=== PATIENT | female | born 1935 | race Caucasian/White ===

== ENCOUNTER 2022-08-02 17:16 | Inpatient (IN) | payer MEDICARE, OTHER ==
[~2022-08-02] VITALS: Ht 162.6 cm; Wt 64.4 kg
[2022-08-02 18:49] LABS: BASOPHILS % (AUTO) 0.5 % (0.0-2.0); EOSINOPHILS % (AUTO) 2.5 % (0.0-6.0); HEMATOCRIT 46 % (33-45); LYMPHOCYTES # (AUTO) 1.3 K/uL (0.8-4.8); LYMPHOCYTES % (AUTO) 14.3 % (20.0-44.0); MEAN CORPUSCULAR HGB CONC 32 g/dl (31.0-36.0); MEAN CORPUSCULAR VOLUME 83 fL (82-100); MONOCYTES % (AUTO) 11.5 % (2.0-12.0); NEUTROPHILS # (AUTO) 6.3 K/uL (1.8-8.9); NEUTROPHILS % (AUTO) 71.2 % (43.0-81.0); PLATELET COUNT (AUTO) 213 K/uL (150-450); RED BLOOD CELL COUNT(AUTO) 5.58 MIL/uL (4.0-5.2); WHITE BLOOD COUNT (AUTO) 8.8 K/uL (4.3-11.0)
--- NOTE | 2022-08-02 19:05 | NUR ---
[id number] BRITTANY GOODWIN [facility], FOR PSYCH EVAL. PT A/OX2/3. NO AGGITATION NOTED AT THIS TIME. TOLERATING R/A WELL WITH NO RESP DITRESS. SAFETY MEASURES IN PLACE.
[2022-08-02 19:29] LABS: ALANINE AMINOTRANSFERASE 17 U/L (12-78); ALBUMIN 3.4 g/dL (3.4-5.0); ALCOHOL, BLOOD < 3 mg/dL (0-0); ALKALINE PHOSPHATASE 103 U/L (46-116); ASPARTATE AMINOTRANSFERASE 13 U/L (15-37); BILIRUBIN,DIRECT 0.2 mg/dL (0.0-0.2); BILIRUBIN,TOTAL 0.8 mg/dL (0.2-1.0); CALCIUM, SERUM 9.6 mg/dL (8.5-10.1); CARBON DIOXIDE 29 mmol/L (21-32); CHLORIDE 104 mmol/L (98-107); CREATININE 2.5 mg/dL (0.6-1.3); GLUCOSE 152 mg/dL (74-106); POTASSIUM 4.2 mmol/L (3.5-5.1); SODIUM SERUM 140 mmol/L (136-145); TOTAL PROTEIN, SERUM 7.4 g/dL (6.4-8.2); UREA NITROGEN, BLOOD 27 mg/dL (7-18)
[2022-08-02 19:30] LABS: ACETAMINOPHEN 0 ug/ml (10-30)
--- NOTE | 2022-08-02 19:31 | NUR ---
COVID ANTIGEN SWAB COLLECTED AND SENT TO LAB
--- NOTE | 2022-08-02 19:37 | NUR ---
URINE COLLECTED AND SENT TO LAB
[2022-08-02 20:25] LABS: BILIRUBIN,URINE NEGATIVE (NEGATIVE); COLOR,URINE YELLOW (YELLOW); LEUKOCYTE ESTERASE ,URINE TRACE (NEGATIVE); NITRITE, URINE NEGATIVE (NEGATIVE); PH,URINE 5.5 (5.0-8.0); PROTEIN,URINE NEGATIVE (NEGATIVE); UGLUCOSE NEGATIVE (NEGATIVE); UROBILINOGEN,URINE 0.2 EU/dL (0.2)
[2022-08-02 20:29] LABS: BACTERIA,URINE Few /HPF (None Seen); SQUAMOUS EPITHELIAL CELL,UR Few /HPF (None Seen)
[2022-08-02] MEDS ORDERED: PIPERACILLIN /TAZOBACTAM 3.375 G in IV D5W 50 ML IV ONE (21:30)
[2022-08-02] MEDS ORDERED: IV NS 0.9% 1,000 ML IV ONE (21:30)
[2022-08-02] MEDS ORDERED: VANCOMYCIN 1 GM in IV D5W 250 ML IV ONE (21:30)
[2022-08-02] MEDS ORDERED: VANCOMYCIN 1 GM VIAL ONE (21:36)
[2022-08-02] MEDS ORDERED: PIPERACILLIN /TAZOBACTAM 3.375 G VIAL IV ONE (21:36)
[2022-08-02] MEDS ORDERED: Z GUARD REMEDY 4 OZ OINT TP PRN (23:00)
[2022-08-02] MEDS ORDERED: ONDANSETRON HCL/PF 4 MG/2 ML VIAL IVP PRN (23:00)
[2022-08-02] MEDS ORDERED: DEXTROSE 50%-WATER 50 ML DISP.SYRIN IV PRN (23:00)
[2022-08-02] MEDS ORDERED: ACETAMINOPHEN 325 MG TABLET PO PRN (23:00)
[2022-08-02] MEDS ORDERED: OLAN5TAB3 PO (23:05)
[2022-08-02] MEDS ORDERED: LEVO150T PO (23:07)
[2022-08-02] MEDS ORDERED: CARV25TA2 PO (23:14)
[2022-08-02] MEDS ORDERED: CLON0.1T PO (23:14)
[2022-08-02] MEDS ORDERED: OXYB5TAB29 PO (23:14)
[2022-08-02] MEDS ORDERED: AMIO200T5 PO (23:14)
[2022-08-02] MEDS ORDERED: SPIR25TA6 PO (23:14)
[2022-08-02] MEDS ORDERED: FURO20TA4 PO (23:14)
[2022-08-02] MEDS ORDERED: LINA5TAB PO (23:14)
[2022-08-02] MEDS ORDERED: LOSA25TA27 PO (23:14)
[2022-08-02] MEDS ORDERED: GLIP5TAB13 PO (23:14)
[2022-08-02] MEDS ORDERED: DOCU-141 PO (23:14)
[2022-08-02] MEDS ORDERED: ATOR80TA PO (23:14)
[2022-08-02] MEDS ORDERED: BUPR-96 PO (23:14)
--- NOTE | 2022-08-02 23:28 | NUR ---
US TECH AT PT'S BEDSIDE
[2022-08-03] MEDS ORDERED: CEFTRIAXONE 1GM BAG (ER ONLY) 50 ML IV ONE (00:42)
[2022-08-03] MEDS ORDERED: OLANZAPINE 5 MG TABLET ONE (00:42)
[2022-08-03] MEDS: OLANZAPINE 5 MG TABLET PO SCH ×2 (00:46→21:57)
[2022-08-03] MEDS: CEFTRIAXONE 1 G in IV D5W 50 ML IV SCH (02:23)
--- NOTE | 2022-08-03 05:55 | NUR ---
LIME SPREADER AT PT'S BEDSIDE
[2022-08-03 06:38] LABS: BASOPHILS # (AUTO) 0.1 K/uL (0.0-0.2); BASOPHILS % (AUTO) 0.8 % (0.0-2.0); EOSINOPHILS % (AUTO) 2.5 % (0.0-6.0); HEMATOCRIT 45 % (33-45); HEMOGLOBIN 14.5 g/dL (11.5-14.8); LYMPHOCYTES # (AUTO) 1.3 K/uL (0.8-4.8); LYMPHOCYTES % (AUTO) 19.5 % (20.0-44.0); MEAN CORPUSCULAR HGB CONC 32 g/dl (31.0-36.0); MEAN CORPUSCULAR VOLUME 84 fL (82-100); MONOCYTES # (AUTO) 0.7 K/uL (0.1-1.30); MONOCYTES % (AUTO) 10.5 % (2.0-12.0); NEUTROPHILS # (AUTO) 4.6 K/uL (1.8-8.9); NEUTROPHILS % (AUTO) 66.7 % (43.0-81.0); PLATELET COUNT (AUTO) 175 K/uL (150-450); RED BLOOD CELL COUNT(AUTO) 5.37 MIL/uL (4.0-5.2); WHITE BLOOD COUNT (AUTO) 6.9 K/uL (4.3-11.0)
[2022-08-03 06:58] LABS: FERRITIN 69 ng/mL (8-388); THYROID STIMULATING HORMONE 18.951 uIU/mL (0.358-3.74)
[2022-08-03 07:04] LABS: CALCIUM, SERUM 8.9 mg/dL (8.5-10.1); CARBON DIOXIDE 27 mmol/L (21-32); CHLORIDE 108 mmol/L (98-107); CREATININE 2.2 mg/dL (0.6-1.3); GLUCOSE 134 mg/dL (74-106); IRON, SERUM 39 ug/dl (50-175); MAGNESIUM 2.4 mg/dL (1.8-2.4); PHOSPHORUS 3.4 mg/dL (2.5-4.9); POTASSIUM 3.8 mmol/L (3.5-5.1); SODIUM SERUM 143 mmol/L (136-145); TOTAL IRON BINDING CAPACITY 267 ug/dl (250-450); UREA NITROGEN, BLOOD 28 mg/dL (7-18)
[2022-08-03] MEDS: PANTOPRAZOLE 40 MG TABLET.DR PO SCH (07:30)
[2022-08-03] MEDS ORDERED: LEVOTHYROXINE SODIUM 125 MCG TABLET PO SCH (07:30)
--- NOTE | 2022-08-03 07:42 | NUR ---
BED 309-1
[2022-08-03] MEDS ORDERED: PANTOPRAZOLE 40 MG TABLET.DR PO ONE (07:45)
[2022-08-03] MEDS: BLOOD SUGAR DIAGNOSTIC 1 EACH STRIP IN SCH ×4 (07:50→23:12)
--- NOTE | 2022-08-03 08:03 | NUR ---
HARDY SIMENTAL ([facility]) [phone]
--- NOTE | 2022-08-03 08:12 | NUR ---
CALL FROM HER SON FROM [place],UPDATER ON PATIENT'S CONDITION AND INFORMED HIM THAT PATIENT GOT AN INPATIENT BED AND WILL BE MOVED SOON.
--- NOTE | 2022-08-03 08:24 | NUR ---
REPORT GIVEN TO ANGELITO CHAPA FOR LUZMARIA
[2022-08-03] MEDS: AMIODARONE HCL 200 MG TABLET PO SCH (09:00)
[2022-08-03] MEDS: CARVEDILOL 12.5 MG TABLET PO SCH ×2 (09:00→21:00)
[2022-08-03] MEDS: DOCUSATE SODIUM 100 MG CAPSULE PO SCH ×2 (09:57→17:31)
[2022-08-03] MEDS: BUPROPION XL 150 MG TAB.ER.24 PO SCH (09:57)
[2022-08-03] MEDS: LEVOTHYROXINE SODIUM 125 MCG TABLET PO SCH (10:01)
[2022-08-03] MEDS: HEPARIN SODIUM, PORCINE 5000 UNITS/1 ML VIAL SQ SCH ×2 (10:02→21:56)
--- NOTE | 2022-08-03 11:00 | NUR ---
MS RN RECEIVED A NEW ADMISSION FROM ER, 87 YEAR OLD FEMALE, ORIENTED X1-2,CONFUSE AT TIMES, CAME IN W/ DX OF UTI, LUNGS ARE CLEAR,ABDOMEN SOFT,POSITIVE BOWEL SOUNDS, DENIES PAIN AT THIS TIME, REPOSITIONED FOR COMFORT, ALL NEEDS ATTENDED, WILL MONITOR PATIENT.
--- NOTE | 2022-08-03 11:50 | NUR ---
ms rn son called updated w/ plan of care.
[2022-08-03] MEDS: IV 1/2NS 1000 ML 1,000 ML IV PRN (13:32)
--- NOTE | 2022-08-03 16:00 | NUR ---
ms rn sleeping no distress noted.
[2022-08-03] MEDS: ATORVASTATIN 40 MG TABLET PO SCH (17:31)
--- NOTE | 2022-08-03 18:36 | NUR ---
ms rn on bed, eating dinner,all needs attended.
--- NOTE | 2022-08-03 19:30 | NUR ---
MS RN OPENING NOTE RECEIVED PT ASLEEP IN BED. PATIENT A/O X2, WITH CONFUSION. PT STABLE ON ROOM AIR WITH EQUAL AND UNLABORED BREATHING, NO S/S OF RESPIRATORY DISTRESS. PATIENT WITH IV ACCESS ON RIGHT HAND G20 WITH 1/2 NS RUNNING AT 75ML/HR INFUSING WELL. SAFETY PRECAUTIONS IN PLACE. BED IN LOWEST LOCKED POSITION, HOB ELEVATED, SIDE RAILS UP X3, AND CALL LIGHT AND TABLE WITHIN REACH. WILL CONTINUE TO MONITOR PT.
[2022-08-03 20:00] VITALS: BP 118/59
--- NOTE | 2022-08-03 21:00 | NUR ---
MS RN NOTE PT REFUSED COREG, PT'S BP: 118/68, P: 53. PT IS VERY COMBATIVE, SHE IS HITTING AND SCRATCHING NURSES.
[2022-08-03] MEDS: OXYBUTYNIN CHLORIDE ER 5 MG TAB PO SCH (21:57)
[2022-08-03] MEDS: INSULIN REGULAR, HUMAN 100 UNIT/ML 3 ML VIAL SQ PRN (23:16)
[2022-08-04] MEDS: CEFTRIAXONE 1 G in IV D5W 50 ML IV SCH (01:11)
[2022-08-04 07:00] VITALS: BP 128/83
--- NOTE | 2022-08-04 07:10 | NUR ---
ms rn received on bed, awake,alert,oriented x3-4, not in any form of distress, respirations even and unlabored,no sob noted, lungs are cdiminished ,abdomen sodft,positive bowel sounds, denies pain at this time, came in w/ uti ,denies pain at this time.
[2022-08-04] MEDS: BLOOD SUGAR DIAGNOSTIC 1 EACH STRIP IN SCH ×4 (07:28→22:14)
--- NOTE | 2022-08-04 07:35 | NUR ---
MS RN CLOSING NOTE LEFT PT ASLEEP IN BED. PATIENT A/O X2, WITH CONFUSION. PT IS COMBATIVE. PT STABLE ON ROOM AIR WITH EQUAL AND UNLABORED BREATHING, NO S/S OF RESPIRATORY DISTRESS. PATIENT WITH IV ACCESS ON RIGHT HAND G20 WITH 1/2 NS RUNNING AT 75ML/HR INFUSING WELL. SAFETY PRECAUTIONS IN PLACE. BED IN LOWEST LOCKED POSITION, HOB ELEVATED, SIDE RAILS UP X3, AND CALL LIGHT AND TABLE WITHIN REACH. ENDORSED PT TO AM SHIFT RN FOR LUZMARIA.
[2022-08-04] MEDS: DOCUSATE SODIUM 100 MG CAPSULE PO SCH ×2 (08:24→18:38)
[2022-08-04] MEDS: AMIODARONE HCL 200 MG TABLET PO SCH (08:25)
[2022-08-04] MEDS: BUPROPION XL 150 MG TAB.ER.24 PO SCH (08:25)
[2022-08-04] MEDS: LEVOTHYROXINE SODIUM 125 MCG TABLET PO SCH (08:25)
[2022-08-04] MEDS: PANTOPRAZOLE 40 MG TABLET.DR PO SCH (08:25)
[2022-08-04] MEDS: CARVEDILOL 12.5 MG TABLET PO SCH ×2 (08:26→21:00)
[2022-08-04 08:30] VITALS: BP 118/70
[2022-08-04] MEDS: HEPARIN SODIUM, PORCINE 5000 UNITS/1 ML VIAL SQ SCH ×2 (08:31→22:15)
--- NOTE | 2022-08-04 09:00 | NUR ---
ms wise breakfast served,due meds given, tolerated well.
--- NOTE | 2022-08-04 11:00 | NUR ---
ms rn was seen by pt, did some exercise,all needs attended.
--- NOTE | 2022-08-04 12:00 | NUR ---
ms rn refused blood draw 2 times, patient went back to sleep.
[2022-08-04 16:00] VITALS: BP 146/75
--- NOTE | 2022-08-04 16:25 | NUR ---
ms rn on bed, sleeping,no distress noted.
[2022-08-04] MEDS: ATORVASTATIN 40 MG TABLET PO SCH (18:38)
--- NOTE | 2022-08-04 19:35 | NUR ---
MS RN Opening Note Received patient in bed; awake, alert and oriented x 2; with episodes of confusion. Breathing even and nonlabored. On room air; tolerating well. Not in any form of respiratory distress. No s/s of any pain or discomfort noted at this time. With IV access on right hand 20g; intact and patent running with 1/2 NS 1L regulated @ 75 ml/hr; flushes well. Able to make needs known. Safety precautions implemented: call light and table within reach, side rails up x 3, bed in lowest locked position. Will continue plan of care.
[2022-08-04 20:00] VITALS: BP 149/68
[2022-08-04] MEDS: IV 1/2NS 1000 ML 1,000 ML IV PRN (20:26)
[2022-08-04] MEDS: OXYBUTYNIN CHLORIDE ER 5 MG TAB PO SCH (21:48)
[2022-08-04] MEDS: OLANZAPINE 5 MG TABLET PO SCH (21:48)
--- NOTE | 2022-08-04 22:05 | NUR ---
RN Note Blood sugar checked - 100 mg/dL. No insulin coverage given per sliding scale. Will continue to monitor for s/s of hypo/hyperglycemia.
[2022-08-05] MEDS: CEFTRIAXONE 1 G in IV D5W 50 ML IV SCH (01:35)
[2022-08-05] MEDS: BLOOD SUGAR DIAGNOSTIC 1 EACH STRIP IN SCH ×4 (06:38→21:23)
[2022-08-05] MEDS: INSULIN REGULAR, HUMAN 100 UNIT/ML 3 ML VIAL SQ PRN ×2 (06:39→12:22)
--- NOTE | 2022-08-05 06:45 | NUR ---
MS RN Closing Note Patient in bed; awake, a/o x 1-2; confused. Stable on room air. Breathing equal and unlabored. In no acute distress. Denies any pain or discomfort at this time. With IV access on right hand 20g; intact and patent running with 1/2 NS 1L regulated @ 75 ml/hr; flushes well. All needs attended to. Safety precautions maintained: call light and table within reach, side rails up x 3, bed in lowest locked position. Endorsed to morning shift for lucy.
[2022-08-05 07:42] LABS: ALANINE AMINOTRANSFERASE 12 U/L (12-78); ALBUMIN 2.7 g/dL (3.4-5.0); ALKALINE PHOSPHATASE 88 U/L (46-116); ASPARTATE AMINOTRANSFERASE 14 U/L (15-37); BILIRUBIN,TOTAL 0.6 mg/dL (0.2-1.0); CALCIUM, SERUM 9.1 mg/dL (8.5-10.1); CARBON DIOXIDE 25 mmol/L (21-32); CHLORIDE 107 mmol/L (98-107); CREATININE 1.6 mg/dL (0.6-1.3); GLUCOSE 108 mg/dL (74-106); MAGNESIUM 2.3 mg/dL (1.8-2.4); PHOSPHORUS 3.2 mg/dL (2.5-4.9); SODIUM SERUM 139 mmol/L (136-145); TOTAL PROTEIN, SERUM 6.5 g/dL (6.4-8.2); UREA NITROGEN, BLOOD 21 mg/dL (7-18)
[2022-08-05 08:00] VITALS: BP 158/76
--- NOTE | 2022-08-05 08:15 | NUR ---
RN OPENING NOTE PATIENT RECEIVED IN BED, AO X 1-2, ABLE TO RESPONDS ALL STIMULI. IN NO ACUTE DISTRESS NOTED. RESPIRATORY EVEN AND UNLABORED IN ROOM AIR. SKIN IS WARM TO TOUCH, KEEP CLEAN/DRY. KEPT ELEVATED HOB FOR ENSURE AIRWAY AND ASPIRATION PRECAUTION, ALSO LOWEST POSITION OF THE BED, S/R UP X 3, BED ALARM IS ON AT ALL THE TIMES. ALL SAFETY PRECAUTION APPLIED. CALL LIGHT WITHIN REACH, WILL CONTINUE TO MONITOR.
[2022-08-05] MEDS: DOCUSATE SODIUM 100 MG CAPSULE PO SCH ×2 (08:28→17:05)
[2022-08-05] MEDS: BUPROPION XL 150 MG TAB.ER.24 PO SCH (08:29)
[2022-08-05] MEDS: PANTOPRAZOLE 40 MG TABLET.DR PO SCH (08:29)
[2022-08-05] MEDS: AMIODARONE HCL 200 MG TABLET PO SCH (08:32)
[2022-08-05] MEDS: LEVOTHYROXINE SODIUM 125 MCG TABLET PO SCH (08:33)
[2022-08-05] MEDS: CARVEDILOL 12.5 MG TABLET PO SCH ×2 (08:33→21:00)
[2022-08-05] MEDS: HEPARIN SODIUM, PORCINE 5000 UNITS/1 ML VIAL SQ SCH ×2 (08:34→21:21)
[2022-08-05 09:08] LABS: BASOPHILS # (AUTO) 0.1 K/uL (0.0-0.2); BASOPHILS % (AUTO) 0.9 % (0.0-2.0); EOSINOPHILS % (AUTO) 3.5 % (0.0-6.0); HEMATOCRIT 45 % (33-45); HEMOGLOBIN 14.3 g/dL (11.5-14.8); LYMPHOCYTES # (AUTO) 1.2 K/uL (0.8-4.8); LYMPHOCYTES % (AUTO) 18.6 % (20.0-44.0); MEAN CORPUSCULAR HGB CONC 32 g/dl (31.0-36.0); MEAN CORPUSCULAR VOLUME 85 fL (82-100); MONOCYTES # (AUTO) 0.8 K/uL (0.1-1.30); MONOCYTES % (AUTO) 12.7 % (2.0-12.0); NEUTROPHILS # (AUTO) 4.1 K/uL (1.8-8.9); NEUTROPHILS % (AUTO) 64.3 % (43.0-81.0); PLATELET COUNT (AUTO) 175 K/uL (150-450); WHITE BLOOD COUNT (AUTO) 6.3 K/uL (4.3-11.0)
[2022-08-05] MEDS: IV 1/2NS 1000 ML 1,000 ML IV PRN (14:07)
[2022-08-05 16:00] VITALS: BP 128/62
[2022-08-05] MEDS: ATORVASTATIN 40 MG TABLET PO SCH (17:05)
--- NOTE | 2022-08-05 18:30 | NUR ---
RN CLOSING NOTE PATIENT IN BED AND RESTING. IN NO ACUTE DISTRESS OBSERVED. RESPIRATORY EVEN AND UNLOBED IN JOHN AIR. SKIN IS WARM TO TOUCH, KEEP CLEAN/DRY. KEPT ELEVATED HOB FOR ENSURE AIR WAY AND ASPIRATION PRECAUTION, ALSO LOWEST BED POSITION. BED ALARM IS ON AT ALL THE TIMES, ALL SAFETY PRECAUTION APPLIED. CALL LIGHT WITHIN REACH, WILL ENDORSE BUSINESS EXCELLENCE MANAGER.
--- NOTE | 2022-08-05 19:30 | NUR ---
RN OPENING NOTE RECEIVED PATIENT IN BED, ALERT AND ORIENTED TO SELF. AFEBRILE AND NOT IN ANY FORM OF ACUTE DISTRESS. BREATHING EVEN AND NON LABORED. NO C/O SOB/WHEEZING NOTED. WITH IV ACCESS ON RIGHT HAND 20G RUNNING WITH 1/2 NS AT 75ML/HR. SAFETY MEASURES IN PLACE. KEPT BED IN LOCKED AND IN LOW POSITION TO REDUCE INJURY. SIDE RAILS UP X2. CALL LIGHT WITHIN EASY REACH.
[2022-08-05 20:00] VITALS: BP 134/64
--- NOTE | 2022-08-05 21:10 | NUR ---
RN NOTE PATIENT'S PULSE WAS 59. RECHECKED AND IT WAS AT 55. CARVEDILOL WAS HOLD D/T DECREASE PULSE RATE.
[2022-08-05] MEDS: OLANZAPINE 5 MG TABLET PO SCH (21:20)
[2022-08-05] MEDS: OXYBUTYNIN CHLORIDE ER 5 MG TAB PO SCH (21:20)
[2022-08-06] MEDS: CEFTRIAXONE 1 G in IV D5W 50 ML IV SCH (00:05)
[2022-08-06] MEDS: IV 1/2NS 1000 ML 1,000 ML IV PRN (04:50)
[2022-08-06] MEDS: BLOOD SUGAR DIAGNOSTIC 1 EACH STRIP IN SCH ×2 (06:36→12:03)
--- NOTE | 2022-08-06 06:55 | NUR ---
RN CLOSING NOTE PATIENT IN BED, ALERT AND ORIENTED TO SELF. AFEBRILE AND NOT IN ANY FORM OF ACUTE DISTRESS. BREATHING EVEN AND NON LABORED. NO C/O SOB/WHEEZING NOTED. WITH IV ACCESS ON RIGHT HAND 20G RUNNING WITH 1/2 NS AT 75ML/HR. MONITORED FOR ANY S/SX. OF HYPO/HYPERGLYCEMIA. MEDICATED ORDERED. OFFERED AND ENCOURAGED FLUIDS TOLERATED. SAFETY MEASURES IN PLACE. KEPT BED IN LOCKED AND IN LOW POSITION TO REDUCE INJURY. SIDE RAILS UP X2. CALL LIGHT WITHIN EASY REACH. ALL NURSING NEEDS ATTENDED. ENDORSED TO INCOMING NURSE FOR CONTINUITY OF CARE.
[2022-08-06 07:50] LABS: CALCIUM, SERUM 8.9 mg/dL (8.5-10.1); CARBON DIOXIDE 21 mmol/L (21-32); CHLORIDE 111 mmol/L (98-107); CREATININE 1.5 mg/dL (0.6-1.3); GLUCOSE 110 mg/dL (74-106); POTASSIUM 4.2 mmol/L (3.5-5.1); SODIUM SERUM 140 mmol/L (136-145); UREA NITROGEN, BLOOD 21 mg/dL (7-18)
[2022-08-06 08:00] VITALS: BP 172/91
--- NOTE | 2022-08-06 08:02 | NUR ---
N OPENING NOTE PATIENT RECEIVED IN BED, AO X 1-2, CONFUSED, ABLE TO RESPONDS ALL STIMULI. IN NO ACUTE DISTRESS NOTED. RESPIRATORY EVEN AND UNLABORED IN ROOM AIR. SKIN IS WARM TO TOUCH, KEEP CLEAN/DRY. KEPT ELEVATED HOB FOR ENSURE AIRWAY AND ASPIRATION PRECAUTION, ALSO LOWEST POSITION OF THE BED, S/R UP X 3, BED ALARM IS ON AT ALL THE TIMES. ALL SAFETY PRECAUTION APPLIED. CALL LIGHT WITHIN REACH, WILL CONTINUE TO MONITOR.
[2022-08-06] MEDS: BUPROPION XL 150 MG TAB.ER.24 PO SCH (09:37)
[2022-08-06] MEDS: AMIODARONE HCL 200 MG TABLET PO SCH (09:38)
[2022-08-06 09:39] VITALS: BP 172/91
[2022-08-06] MEDS: CARVEDILOL 12.5 MG TABLET PO SCH (09:39)
[2022-08-06] MEDS: PANTOPRAZOLE 40 MG TABLET.DR PO SCH (09:39)
[2022-08-06] MEDS: DOCUSATE SODIUM 100 MG CAPSULE PO SCH (09:41)
[2022-08-06] MEDS: HEPARIN SODIUM, PORCINE 5000 UNITS/1 ML VIAL SQ SCH (09:41)
[2022-08-06] MEDS: LEVOTHYROXINE SODIUM 125 MCG TABLET PO SCH (09:44)
--- NOTE | 2022-08-06 16:10 | NUR ---
[facility] GIVEN [facility]PORT SERENA/CABLE TELEVISION INSTALLER INCLUDE SAWING AND ASSEMBLY SUPERVISOR TIME AT 1730.
--- NOTE | 2022-08-06 16:53 | NUR ---
2EMTs TOY PAINTER PATIENT TO THE [facility] PATIENT IN STABLE CONDITION, IN NO ACUTE DISTRESS OBSERVED.
== END 2022-08-06 17:00 | DRG 682 ==
LOC: ER 17:20 → TRANSITION 08-03 00:12 → MED 08-03 08:00
PROVIDERS: ADMIT Nurse Practitioner Family
DX: N17.0 Acute kidney failure with tubular necrosis (principal); G93.41 Metabolic encephalopathy; N39.0 Urinary tract infection, site not specified; I13.0 Hypertensive heart and chronic kidney disease with heart failure and stage 1 through stage 4 chronic kidney disease, or unspecified chronic kidney disease; F03.918 Unspecified dementia, unspecified severity, with other behavioral disturbance; N18.9 Chronic kidney disease, unspecified; E03.9 Hypothyroidism, unspecified; E78.5 Hyperlipidemia, unspecified; E86.0 Dehydration; J32.0 Chronic maxillary sinusitis; I50.9 Heart failure, unspecified; Z79.84 Long term (current) use of oral hypoglycemic drugs; E11.22 Type 2 diabetes mellitus with diabetic chronic kidney disease; F32.A Depression, unspecified; N26.1 Atrophy of kidney (terminal); Z20.822 Contact with and (suspected) exposure to COVID-19
CPT/HCPCS: 36415; 70450-TC; 71045-TC; 76770-TC; 80048-TC; 80053-TC; 80076-TC; 81001; 82607-TC; 82728-TC; 82962-TC; 83540-TC; 83735-TC; 84100-TC; 84443-TC; 85025-TC; 87081-TC; 87086-TC; 97110-TC; 97112-TC; 97530-TC; C9803; G0378; G0480; J0696; J1644; J2405; J2543; J3370; J3490; J7030; J7060